=== PATIENT | female | born 1970 | race Caucasian/White ===

== ENCOUNTER 2023-01-01 11:02 | Day surgery (SDC) | payer BC ==
[2023-01-01] MEDS ORDERED: propofoL 50 ML ONE ×2 (11:31→12:49)
[2023-01-01] MEDS ORDERED: Dexmedetomidine 200 MCG/2 ML SDV ONE (11:32)
[2023-01-01] MEDS ORDERED: Lidocaine 1% 20 ML MDV ONE (11:56)
[2023-01-01] MEDS ORDERED: Bupivacaine 0.5% 30 ML SDV ONE (11:56)
[2023-01-01] MEDS ORDERED: cefOXitin 1 GM Vial ONE (12:18)
[2023-01-01 14:35] VITALS: BP 147/79; PULSE 81
[2023-01-01] MEDS ORDERED: Lactated Ringers 1,000 ML IV SCH (14:45)
== END 2023-01-01 14:22 | disposition home or self-care (01) ==
LOC: MW.SDS 11:02
PROVIDERS: ATTEND Surgery
DX: Z12.11 Encounter for screening for malignant neoplasm of colon (principal); K21.9 Gastro-esophageal reflux disease without esophagitis; K44.9 Diaphragmatic hernia without obstruction or gangrene; K42.9 Umbilical hernia without obstruction or gangrene; L72.0 Epidermal cyst; L91.0 Hypertrophic scar; K31.89 Other diseases of stomach and duodenum; K22.89 Other specified disease of esophagus; E66.9 Obesity, unspecified; F32.A Depression, unspecified; Z83.71 Family history of colonic polyps; Z88.8 Allergy status to other drugs, medicaments and biological substances; Z91.040 Latex allergy status; Z79.899 Other long term (current) drug therapy; Z90.49 Acquired absence of other specified parts of digestive tract; Z68.38 Body mass index [BMI] 38.0-38.9, adult
CPT/HCPCS: 11402; 43239; 45378; 49591; J0694; J2704; J3490; J7120; 00832